=== PATIENT | male | born 1995 | race Hispanic/Latino ===

== ENCOUNTER 2018-08-11 18:10 | Emergency (ER) | payer OTHER ==
[~2018-08-11] VITALS: Ht 165.1 cm; Wt 90.7 kg
[2018-08-11] MEDS ORDERED: METHYLPREDNISOLO4 M1 PO (18:40)
[2018-08-11] MEDS ORDERED: BACLOFEN10 MG PO (18:40)
--- OUTSIDE RECORDS SUMMARY | 2018-08-11 19:26 | XMS ---
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 [employer] has no Care Guidelines for this patient. Myesha VISIT COUNT (12 MO.) 1 [facility] [address] [facility] TOTAL 2 NOTE: Visits indicate total known visits. ED/C VISIT TRACKING (12 MO.) [facility] COMPLAINT: - BACK PAIN 08/09/2018 02:04 [facility] TYPE: Emergency COMPLAINT: - KIDNEY PAIN INPATIENT VISIT TRACKING (12 MO.) No inpatient visits to display in this time frame [email or web address]
== END 2018-08-11 18:56 | disposition home or self-care (01) ==
LOC: ED 18:10
DX: M99.03 Segmental and somatic dysfunction of lumbar region (principal); M62.838 Other muscle spasm; Z88.0 Allergy status to penicillin
CPT/HCPCS: 99283